=== PATIENT | female | born 1940 | race Asian ===

== ENCOUNTER → 2024-01-21 | Outpatient (CLI) | payer OTHER | LOC: M RAD 10:09 | PROVIDERS: ATTEND Family Medicine | DX: E04.1 Nontoxic single thyroid nodule (principal) ==

== ENCOUNTER → 2024-05-03 | Outpatient (CLI) | payer OTHER, MEDICAID | LOC: M WHC 08:32 | PROVIDERS: ATTEND Family Medicine | DX: Z12.31 Encounter for screening mammogram for malignant neoplasm of breast (principal); Z78.0 Asymptomatic menopausal state; Z85.3 Personal history of malignant neoplasm of breast; Z90.12 Acquired absence of left breast and nipple; R92.311 Mammographic fatty tissue density, right breast | CPT/HCPCS: 77067; 77080; G0279 ==